=== PATIENT | male | born 1980 | race Caucasian/White ===

== ENCOUNTER 2022-07-18 10:11 | Emergency (ER) | payer OTHER, SELFPAY ==
--- NOTE | 2022-07-18 10:12 | ED.URI ---
HPI - URI/Sore Throat General Chief Complaint: Upper Respiratory Infection Stated Complaint: COVID Test Time Seen by Provider: 07/18/22 10:12 Source: patient and RN notes reviewed History of Present Illness HPI Narrative: patient is a 42-year-old male who presents to urgent care requesting a COVID test for release to work. Patient states that he was at Occupational Health at [facility] this morning and was sent to their occupational health at [facility] and decided that this was closer . Patient is needing a release due to his scratchy throat. Patient states he has had a scratchy throat for 2 days which is his normal for seasonal change. Patient denies any fever, nausea or vomiting. Denies any ill exposures. No other acute complaints. No acute distress noted. Patient aware of the plan of care. Some parts of this dictation were generated by voice recognition software and may contain typographical and/or grammatical inaccuracies. Related Data Allergies Allergy/AdvReac Type Severity Reaction Status Date / Time No Known Allergies Allergy Verified 07/18/22 10:19 Review of Systems Review of Systems: CONSTITUTIONAL: Denies fever, chills, or sweats. EYES: Denies visual changes, redness, or discharge. ENT: Denies rhinorrhea, congestion, Otalgia. Reports of scratchy throat CARDIOVASCULAR: Denies chest pain, palpitations, or edema. RESPIRATORY: Denies cough or dyspnea. GASTROINTESTINAL: Denies abdominal pain, nausea, vomiting, or diarrhea. GENITOURINARY: Denies dysuria or hematuria. SKIN: Denies rash or itching. MUSCULOSKELETAL: Denies back pain, joint pain, or myalgia. NEUROLOGIC: Denies headache, numbness, or weakness. All other systems reviewed are negative, except as documented in HPI. PMFSH Comments At the time of my signature, I reviewed and agree with the nursing past medical, surgical, social, and family history. There is no relevant family history pertinent to the patient complaint. Exam Narrative: GENERAL: This is a well-nourished, well-developed patient, in no apparent distress. HEAD: normocephalic, atraumatic. EYES: PERRL. Sclera clear/white. Vision is grossly intact. EARS: External ears normal NOSE: External nose normal with no obvious nasal discharge, nares without redness, no rhinorrhea. THROAT: Mucous membranes moist, posterior pharynx clear. mild postnasal drainage NECK: Neck supple, non-tender without lymphadenopathy, masses or thyromegaly. CARDIOVASCULAR: Regular rate and rhythm RESPIRATORY: Clear to auscultation. Breath sounds equal bilaterally. No wheezes, rales, or rhonchi. SKIN: warm, intact with no suspicious lesions or rash, good texture and turgor. NEURO: awake, alert, and oriented to person, place and time. There were no obvious focal neurologic abnormalities. EXTREMITIES: No clubbing, cyanosis, or edema. Course Course Level of Care: Express Care Visit Vital Signs Vital signs: Vital Signs Temperature 97.6 F 07/18/22 10:18 Pulse Rate 105 H 07/18/22 10:18 Respiratory Rate 20 07/18/22 10:18 Blood Pressure 161/108 H 07/18/22 10:18 Pulse Oximetry 100 07/18/22 10:18 Oxygen Delivery Room Air 07/18/22 10:18 Temperature 97.6 F 07/18/22 10:18 Pulse Rate 105 H 07/18/22 10:18 Respiratory Rate 20 07/18/22 10:18 Blood Pressure 161/108 H 07/18/22 10:18 Pulse Oximetry 100 07/18/22 10:18 Oxygen Delivery Room Air 07/18/22 10:18 reviewed- Patient is informed that they may have pre-hypertension or hypertension based on a blood pressure reading in the department. I recommend the patient call the primary care provider listed on their discharge instructions or a physician of their choice this week to arrange follow-up for further evaluation of possible pre-hypertension or hypertension. MDM - URI/Sore Throat MDM Narrative Medical decision making narrative: explained to the patient our facility does not give release note for COVID. Would be advised to go to occupa
[2022-07-18 10:18] VITALS: BP 161/108; PULSE 105; RESP 20; TEMP 36.4; O2SAT 100
== END 2022-07-18 10:33 | disposition home or self-care (01) ==
PROVIDERS: Emergency Provider Nurse Practitioner Family; PCP Internal Medicine
DX: J02.9 Acute pharyngitis, unspecified (principal); E78.00 Pure hypercholesterolemia, unspecified; E11.9 Type 2 diabetes mellitus without complications
CPT/HCPCS: 99211; G0463